=== PATIENT | male | born 1975 | race Caucasian/White ===

== ENCOUNTER 2016-08-16 07:59 | Day surgery (SDC) | payer OTHER ==
[2016-08-16] VITALS (11 sets, daily range): BP systolic 91–139; BP diastolic 54–91; PULSE 42–72; RESP 10–16; Ht 171.4 cm; Wt 86.6 kg
[~2016-08-16] VITALS: Ht 171.4 cm; Wt 86.6 kg
[~2016-08-16 07:59] MED LIST: BALANCED SALT SOLN 15 ML OPH IRRIG ONE
[2016-08-16] MEDS ORDERED: MITOMYCIN 5 MG INJ OP ONE (10:00)
--- NOTE | 2016-08-16 10:11 | HPN ---
Date/Time of Note Date/Time of Note DATE: 08/16/16 TIME: 10:11 Interval H&P Admission Note Pt. seen H&P reviewed: No system changes ERON CHANCE MD Aug 16, 2016 10:11
[2016-08-16] MEDS ORDERED: PROPOFOL 20 ML ONE ×2 (10:18→11:49)
[2016-08-16] MEDS ORDERED: MIDAZOLAM 1 MG/ML 2 ML INJ ONE (10:18)
[2016-08-16] MEDS ORDERED: PHENYLephrine 10% 5 ML OPH LEFT EYE ONE (10:30)
[2016-08-16] MEDS ORDERED: TOBRAMYCIN/DEXAMETH 3.5 GM OPH OINT ONE (10:40)
[2016-08-16] MEDS ORDERED: PHENYLephrine 10% 5 ML OPH ONE (10:40)
[2016-08-16] MEDS ORDERED: LIDOCAINE 2%/EPI 30 ML INJ ONE (10:40)
[2016-08-16] MEDS ORDERED: FENTAnyl 50 MCG/ML VIAL ONE (11:45)
[2016-08-16] MEDS ORDERED: TOBRAMYCIN/DEXAMETH 3.5 GM OPH OINT LEFT EYE ONE (12:05)
[2016-08-16] MEDS ORDERED: METOCLOPRAMIDE 10 MG INJ IV PRN (12:30)
[2016-08-16] MEDS ORDERED: MIDAZOLAM 1 MG/ML 2 ML INJ IV PRN (12:30)
[2016-08-16] MEDS ORDERED: DIPHENHYDRAMINE 50 MG INJ IV PRN (12:30)
[2016-08-16] MEDS ORDERED: OXYCODONE/ACETAMINOPHEN (5/325) TAB PO PRN ×2 (12:30)
[2016-08-16] MEDS ORDERED: FENTAnyl 50 MCG/ML VIAL IV PRN ×2 (12:30)
[2016-08-16] MEDS ORDERED: ONDANSETRON 4 MG INJ IV PRN (12:30)
[2016-08-16] MEDS ORDERED: MEPERIDINE 25 MG INJ IV PRN (12:30)
[2016-08-16] MEDS ORDERED: morphine (1 MG/ML) 10ML SYRINGE IV PRN ×2 (12:30)
[2016-08-16] MEDS ORDERED: HYDROCODONE/APAP (5/325) TAB PO SCH (13:00)
--- NOTE | 2016-08-16 14:28 | OPR ---
DATE OF OPERATION: 08/16/2016 SURGEON: Eron Rodrigez MD PREOPERATIVE DIAGNOSIS: Both a nasal and temporal pterygium, left eye. POSTOPERATIVE DIAGNOSIS: Both a nasal and temporal pterygium, left eye. OPERATION PERFORMED: Excision of pterygium, application of mitomycin C, closure of defect with adva ncement flaps. DESCRIPTION OF PROCEDURE: Following standard preparation and draping of the patient, a solid-blade lid speculum was placed for immobilization of the lids. A small amount of nonpreserved anesthetic w as placed beneath the head of the pterygium nasally following which the head of the pterygium was ex cised from the cornea and the body excised posteriorly. The entire pterygium was therefore excised. The sclera was cleaned of any superficial tissue, following which a mitomycin C 0.3 mg per mL soak ed into a small piece of sponge was placed at the corneoscleral limbal region. After 3 minutes, thi s was removed and the eye copiously irrigated with balanced salt solution. Any bleeding was now con trolled with cauterization. The limbal conjunctiva was now incised from its attachment both superio rly and inferiorly and advanced so as to close the defect where the pterygium had been located. The sutures were buried through superficial sclera to try to maintain them from moving. A similar procedure was now performed of the temporal pterygium. Vitreous, however, was at the corn eoscleral limbus, there appeared to be a black lesion beneath the conjunctiva, which turned out to b e a piece of metal which undoubtedly had been present for some time. The metal was not ironed in th at it was not rusted. The remainder of the procedure was similar to the procedure performed nasally . Following completion of the surgery, the eye was copiously irrigated with 5% Betadine solution, f ollowing which TobraDex ointment was placed in the eye. A fairly firm eye patch was placed to hopef ully maintain immobilization of the conjunctival flaps. The patient was returned to the recovery ro in satisfactory condition. Dictated By: ERON HAMMONDS/RICH Conf#: [id number] DID#: [id number]
== END 2016-08-16 13:55 | disposition home or self-care (01) ==
LOC: SDS 07:59
PROVIDERS: ATTEND Ophthalmology
DX: H11.002 Unspecified pterygium of left eye (principal); E03.9 Hypothyroidism, unspecified
CPT/HCPCS: 65426; 82962; J2175; J2250; J3010; J9280; Z7512; Z7610